=== PATIENT | female | born 1990 | race Caucasian/White ===

== ENCOUNTER 2022-05-23 08:00 | Emergency (ER) | payer BC ==
[2022-05-23] MEDS ORDERED: ONDANSETRON 4 MG/2 ML VIAL IVP STA (08:26)
[2022-05-23] MEDS ORDERED: SODIUM CHLORIDE 0.9% 1,000 ML IV STA (08:26)
--- NOTE | 2022-05-23 08:29 | ED Physician Documentation ---
PD HPI NVD - Stated complaint Stated Complaint: NAUSEA - Chief complaint Chief Complaint: Neuro - History obtained from History obtained from: Patient - History of Present Illness Timing - onset: How many days ago (few days of general fatigue, tiredness, postural headache, and nausea.) Timing - duration: Days (45 days of general fatigue and tiredness with sleeping a lot during the day and extra long at night. Nausea with decreased food intake but states she is still taking fluids. Feeling lightheaded at times. Considerably so this morning with near syncope and did fall over striking her shoulder.) Timing - details: Gradual onset, Still present Associated symptoms: Near syncope / syncope, Loss of appetite. No: Fever (but has feeling of chills), Abdominal pain, Chest pain, Dysuria, Vaginal bleeding Contributing factors: Sick contact (her boyfriend currently with COVID. Patient tested negative home tests.) Improved by: Laying still, Position Worsened by: Eating (worsened nausea with food. Taking fluids reasonably.), Position (feels worse standing up awhile. No vertigo, but lightheaded.) Similar symptoms before: Has not had sx before Recently seen: Not recently seen Review of Systems Constitutional: reports: Chills, Fatigue. denies: Fever, Weight Loss Nose: denies: Rhinorrhea / runny nose, Congestion Throat: denies: Sore throat Respiratory: denies: Cough GI: reports: Nausea. denies: Abdominal Pain, Vomiting, Diarrhea, Bloody / black stool : denies: Dysuria, Frequency, Missed period Skin: reports: Rash (baseline eczema left arm, not worse than usual.) Musculoskeletal: denies: Neck pain, Back pain Neurologic: reports: Near syncope (but to the point of losing muscle control and falling this morning in the shower. She does not think she completely passed out. Did see stars and dim vision prior to near-syncope.), Headache (intermittently the past several days.). denies: Syncope, Altered mental status PD PAST MEDICAL HISTORY - Past Medical History Cardiovascular: None Respiratory: None Endocrine/Autoimmune: None Derm: Eczema - Present Medications Home Medications: Ambulatory Orders Medication Instructions Recorded Confirmed Famotidine [Pepcid] 20 mg PO DAILY #15 tablet 05/23/22 Ondansetron Odt [Zofran] 4 mg TL Q6H PRN #10 tablet 05/23/22 Promethazine [Phenergan] 25 mg PO Q6H PRN #10 tab 05/23/22 - Allergies Allergies/Adverse Reactions: Allergies Allergy/AdvReac Type Severity Reaction Status Date / Time No Known Drug Allergies Allergy Verified 05/23/22 08:11 PD ED PE NORMAL - Vitals Vital signs reviewed: Yes - General General: Alert and oriented X 3, No acute distress, Well developed/nourished - HEENT HEENT: PERRL, EOMI - Neck Neck: Supple, no meningeal sign - Cardiac Cardiac: RRR, No murmur - Respiratory Respiratory: Clear bilaterally - Abdomen Abdomen: Normal bowel sounds, Soft, Non distended, Other (minimal tenderness left lower abd without guarding. ) - Derm Derm: Normal color, Other (faint scaly patches left arm c/w eczema. ) - Extremities Extremities: No edema, No calf tenderness / cord - Neuro Neuro: Alert and oriented X 3, No motor deficit, Normal speech Results - Vitals Vitals: Vital Signs - 24 hr 05/23/22 05/23/22 05/23/22 08:08 09:41 10:34 Temperature 36.4 C L Heart Rate 90 63 Heart Rate [ 69 Sitting] Heart Rate [ 72 Standing] Heart Rate [ 72 Supine] Respiratory 16 18 Rate Blood Pressure 126/90 H 115/74 Blood Pressure 121/79 [Sitting] Blood Pressure 130/79 [Standing] Blood Pressure 116/73 [Supine] O2 Saturation 100 100 Oxygen O2 Source Room air - EKG (time done) 08:38 Rate: Rate (enter#) (normal) Rhythm: NSR [place]: Normal Intervals: Normal [place] QRS: Normal Ischemia: Normal ST segments. No: ST elevation c/w ischemia, ST depression - Labs Labs: Laboratory Tests 05/23/22 05/23/22 05/23/22 08:31 08:31 08:31 WBC 9.5 RBC 4.25 Hgb 13.2 Hct 39.6 MCV 93.2 MCH 31.1 H MCHC 33.3 RDW 11.8 L Plt Count 220 MPV 10.0 Neut # (Auto) 8.0 H Lymph # (Auto) 0.9 L [place] # (Auto) 0.5 Eos # (Auto) 0.0 Baso # (Auto) 0.0 Absolute Nucleated RBC 0.00 Nucleated RBC % 0.0 Sodium 135 Potassium 3.6 Chloride 101 Carbon Dioxide 24 Anion Gap 10.0 BUN 19 Creatinine 0.9 Estimated GFR (MDRD) 73 L Glucose 111 H Calcium 9.6 Magnesium 2.2 Total Bilirubin 1.5 H AST 13 ALT < 10 L Alkaline Phosphatase 46 Total Protein 7.1 Albumin 4.2 Globulin 2.9 Albumin/Globulin Ratio 1.4 Lipase 38 TSH 1.14 Serum HCG, Qual Nasal Adenovirus (PCR) Nasal B. parapertussis DNA (PCR) Nasal Coronavir 229E PCR Nasal Coronavir HKU1 PCR Nasal Coronavir NL63 PCR Nasal Coronavir OC43 PCR Nasal Enterovir/Rhinovir PCR Nasal Influenza B PCR Nasal Influenza A PCR Nasal Parainfluen 1 PCR Nasal Parainfluen 2 PCR Nasal Parainfluen 3 PCR Nasal Parainfluen 4 PCR Nasal RSV (PCR) Nasal B.pertussis DNA PCR Nasal C.pneumoniae (PCR) Timothy Human Metapneumo PCR Nasal M.pneumoniae (PCR) Nasal SARS-CoV-2 (PCR) 05/23/22 05/23/22 08:31 08:32 WBC RBC Hgb Hct MCV MCH MCHC RDW Plt Count MPV Neut # (Auto) Lymph # (Auto) [place] # (Auto) Eos # (Auto) Baso # (Auto) Absolute Nucleated RBC Nucleated RBC % Sodium Potassium Chloride Carbon Dioxide Anion Gap BUN Creatinine Estimated GFR (MDRD) Glucose Calcium Magnesium Total Bilirubin AST ALT Alkaline Phosphatase Total Protein Albumin Globulin Albumin/Globulin Ratio Lipase TSH Serum HCG, Qual NEGATIVE Nasal Adenovirus (PCR) NOT DETECTED Nasal B. parapertussis DNA (PCR) NOT DETECTED Nasal Coronavir 229E PCR NOT DETECTED Nasal Coronavir HKU1 PCR NOT DETECTED Nasal Coronavir NL63 PCR NOT DETECTED Nasal Coronavir OC43 PCR NOT DETECTED Nasal Enterovir/Rhinovir PCR NOT DETECTED Nasal Influenza B PCR NOT DETECTED Nasal Influenza A PCR NOT DETECTED Nasal Parainfluen 1 PCR NOT DETECTED Nasal Parainfluen 2 PCR NOT DETECTED Nasal Parainfluen 3 PCR NOT DETECTED Nasal Parainfluen 4 PCR NOT DETECTED Nasal RSV (PCR) NOT DETECTED Nasal B.pertussis DNA PCR NOT DETECTED Nasal C.pneumoniae (PCR) NOT DETECTED Timothy Human Metapneumo PCR NOT DETECTED Nasal M.pneumoniae (PCR) NOT DETECTED Nasal SARS-CoV-2 (PCR) NOT DETECTED PD Medical Decision Making - ED course Complexity details: reviewed results, re-evaluated patient, considered differential (General weakness, tiredness, headache and nausea with near syncope this morning. Boyfriend has COVID but she tested negative at home. Consider viral illness with under hydration. Can check electrolytes and blood sugar and thyroid as well as and hemoglobin to look for other causes.), d/w patient Reviewed Lab Results: WBC appears normal. HCG ordered since patient of age to consider as cause of nausea and lightheaded. this was negative. UA normal iwthout signs of infection. Electrolytes and blood sugar without notable abnormality. ED course: patient feeling okay with iv fluids and medications. Presume viral illness with her symptoms. With some volume depletion as has had nausea and less food intake, even though still having fluids. Abd beningn on exam, so considered but did not feel necessity of imaging such as CT or US. Departure - Departure Disposition: 01 Home, Self Care Clinical Impression: Nausea, Near syncope, Volume depletion, Viral syndrome Condition: Stable Record reviewed to determine appropriate education?: Yes Instructions: ED Near Syncope Unkn, ED Nausea Vomiting Prescriptions: Famotidine [Pepcid] 20 mg PO DAILY #15 tablet Promethazine [Phenergan] 25 mg PO Q6H PRN #10 tab PRN Reason: Nausea / Vomiting Ondansetron Odt [Zofran] 4 mg TL Q6H PRN #10 tablet PRN Reason: Nausea / Vomiting Comments: Your basic blood count and chemistry panels are normal without any signs of anemia, diabetes, thyroid disorder, electrolyte abnormalities or kidney failure. test is negative. Your blood pressure did not really change much from's lying to standing. Generally your symptoms do sound like a viral type illness with the nausea, weakness, headache. At this point I would suggest trying some ondansetron if needed for nausea and/or promethazine. Stay well-hydrated as you have been doing. Increase food intake as tolerated. Tylenol or ibuprofen as needed for pains. Your stomach would be likely irritated from the illness and nausea and this may be perpetuating your symptoms. I would add famotidine twice daily for the next week or so. I sent your prescriptions to your [facility] pharmacy. Recheck if not improved well over the next few days. Discharge Date/Time: 05/23/22 11:29
[2022-05-23 08:37] LABS: BASOPHILS % (AUTO) 0.3 %; EOSINOPHILS % (AUTO) 0.3 %; HCT - HEMATOCRIT 39.6 % (37.0-47.0); HGB - HEMOGLOBIN 13.2 g/dL (12.0-16.0); LYMPHOCYTES # (AUTO) 0.9 10^3/uL (1.5-3.5); LYMPHOCYTES % (AUTO) 9.9 %; MEAN CORPUSCULAR HEMOGLOBIN 31.1 pg (27.0-31.0); MEAN CORPUSCULAR HGB CONC 33.3 g/dL (32.0-36.0); MEAN CORPUSCULAR VOLUME 93.2 fL (81.0-99.0); MONOCYTES # (AUTO) 0.5 10^3/uL (0.0-1.0); MONOCYTES % (AUTO) 5.5 %; NEUTROPHILS % (AUTO) 83.7 %; PLT - PLATELET COUNT 220 10^3/uL (130-450); RED BLOOD COUNT 4.25 10^6/uL (4.20-5.40); RED CELL DISTRIBUTION WIDTH 11.8 % (12.0-15.0); WHITE BLOOD COUNT 9.5 x10^3/uL (4.8-10.8)
[2022-05-23 08:55] LABS: ALBUMIN 4.2 g/dL (3.2-5.5); ALBUMIN/GLOBULIN RATIO 1.4 (1.0-2.2); ALKALINE PHOSPHATASE 46 IU/L (42-121); ALT ALANINE AMINOTRANSFERASE < 10 IU/L (10-60); AST ASPARTATE AMINOTRANSFERASE 13 IU/L (10-42); BILIRUBIN,TOTAL 1.5 mg/dL (0.2-1.0); BUN - BLOOD UREA NITROGEN 19 mg/dL (6-20); CALCIUM 9.6 mg/dL (8.5-10.3); CARBON DIOXIDE - CO2 24 mmol/L (21-32); CHLORIDE 101 mmol/L (101-111); CREATININE 0.9 mg/dL (0.4-1.0); GFR - MDRD 73 (>89); GLUCOSE 111 mg/dL (70-100); LIPASE 38 U/L (22-51); MAGNESIUM 2.2 mg/dL (1.7-2.8); POTASSIUM 3.6 mmol/L (3.5-5.0); SODIUM 135 mmol/L (135-145); TOTAL PROTEIN 7.1 g/dL (6.7-8.2)
[2022-05-23 09:06] LABS: HCG,QUALITATIVE BLOOD NEGATIVE
[2022-05-23] MEDS ORDERED: KETOROLAC 15 MG/ML VIAL IVP STA (09:12)
[2022-05-23 09:44] LABS: B. PARAPERTUSSIS- RESP PCR PAN NOT DETECTED; B. PERTUSSIS- RESP PCR PANEL NOT DETECTED; C. PNEUMONIAE- RESP PCR PANEL NOT DETECTED; CORONAVIRUS 229E-RESP PCR NOT DETECTED; CORONAVIRUS HKU1-RESP PCR NOT DETECTED; CORONAVIRUS NL63-RESP PCR NOT DETECTED; CORONAVIRUS OC43-RESP PCR NOT DETECTED; HUMAN METAPNEUMOVIRUS NOT DETECTED; INFLUENZA A- RESP PCR PANEL NOT DETECTED; INFLUENZA B - RESP PCR PANEL NOT DETECTED; M. PNEUMONIAE- RESP PCR PANEL NOT DETECTED; PARAINFLUENZA VIRUS 1 NOT DETECTED; PARAINFLUENZA VIRUS 2 NOT DETECTED; PARAINFLUENZA VIRUS 3 NOT DETECTED; PARAINFLUENZA VIRUS 4 NOT DETECTED; RHINOVIRUS/ENTEROVIRUS NOT DETECTED; RSV- RESP PCR PANEL NOT DETECTED; SARS-CoV-2 -RESP PCR PANEL NOT DETECTED
[2022-05-23 10:36] VITALS: BP 115/74
== END 2022-05-23 11:29 | disposition home or self-care (01) ==
LOC: ED 08:00
DX: E86.9 Volume depletion, unspecified (principal); B34.9 Viral infection, unspecified; Z20.822 Contact with and (suspected) exposure to COVID-19
CPT/HCPCS: 36415; 80053; 83690; 83735; 84443; 84703; 85025; 87633; 93005; 96374; 96375; 99284

== ENCOUNTER 2022-11-23 11:46 | Emergency (ER) | payer BC ==
--- NOTE | 2022-11-23 14:00 | ED Physician Documentation ---
PD HPI HEADACHE - Stated complaint Stated Complaint: FEVER,LOMELI - Chief complaint Chief Complaint: Neuro - History obtained from History obtained from: Patient - Additional information Additional information: The patient comes to the emergency department chief complaint of ongoing headaches over the last several months, as well as occasional fainting episodes. She states that she has been diagnosed with migraines by her primary doctor and started on Topamax and another medication for migraine which she is not sure of the name of. She states that she has also been diagnosed with orthostatic hypotension as a chronic condition. The patient states she drinks around 60 ounces of water every day and feels that she is generally well-hydrated. She has been in the process of trying to get an MRI through her primary doctor, but so far, they have been having some trouble getting the insurance company to approve it. The patient has an appointment coming up with her primary doctor in a couple of weeks. She is here because 6 days ago, she had another fainting episode after getting up in the bathroom. She does not really know how long she was out because she was the only one home, but states that she thinks that she bumped her head against the wall as she fell. The patient states her bathroom is very small and it did not feel as though she hit her head very hard, but that since then, she has had a couple of other episodes of feeling lightheaded which have not resulted in an actual syncopal episode. The patient states that each time, she has felt lightheaded and is quickly squatted down and managed to avoid a syncopal episode. She denies any palpitations, shortness of breath or chest pain. She states she does not feel sick in any other way. She has had persistent headache for the last several days which is consistent with her prior migraines. The patient denies any worsening of the headache progressively over the last week. She has been measuring temperatures of 98-99 at home. No neck pain currently. The patient denies any neurologic deficits. She states that sometimes when her migraines come on, she will see spots in her vision, and that this lasts for sometimes several seconds to several minutes, but always resolves on its own. No other complaints at this time. The patient is hoping to get an MRI since she has been having trouble getting one as an outpatient. PD PAST MEDICAL HISTORY - Past Medical History Cardiovascular: None Respiratory: None Endocrine/Autoimmune: None Derm: Eczema - Present Medications Home Medications: Ambulatory Orders Medication Instructions Recorded Confirmed DULoxetine [Cymbalta] 30 mg PO DAILY 11/23/22 11/23/22 Sumatriptan Succinate [Imitrex] 50 mg PO PRN PRN 11/23/22 11/23/22 Topiramate [Topamax] 25 mg PO DAILY 11/23/22 11/23/22 - Allergies Allergies/Adverse Reactions: Allergies Allergy/AdvReac Type Severity Reaction Status Date / Time No Known Drug Allergies Allergy Verified 05/23/22 08:11 PD ED PE NORMAL - Vitals Vital signs reviewed: Yes - General General: Alert and oriented X 3, No acute distress, Well developed/nourished - HEENT HEENT: Atraumatic, PERRL, EOMI, Moist mucous membranes - Neck Neck: Supple, no meningeal sign, No bony TTP - Cardiac Cardiac: RRR, No murmur, Strong equal pulses - Respiratory Respiratory: No respiratory distress, Clear bilaterally - Abdomen Abdomen: Soft, Non tender, Non distended - Back Back: No spinal TTP - Derm Derm: Normal color, Warm and dry, No rash - Extremities Extremities: No deformity, No edema - Neuro Neuro: Alert and oriented X 3 - Psych Psych: Normal mood, Normal affect Results - Vitals Vitals: Vital Signs - 24 hr 11/23/22 11/23/22 11/23/22 11:55 11:58 12:38 Temperature 36.7 C 36.7 C Heart Rate 80 80 96 Respiratory 20 20 18 Rate Blood Pressure 114/82 H 114/82 H 176/101 H O2 Saturation 99 99 100 11/23/22 13:58 Temperature 36.6 C Heart Rate 88 Respiratory 16 Rate Blood Pressure 138/88 H O2 Saturation 100 Oxygen O2 Source Room air PD Medical Decision Making - ED course Complexity details: reviewed results, re-evaluated patient, considered differential, d/w patient ED course: I discussed with the patient that at this point in time, I do not feel that emergent imaging is indicated. Our CT scanner is actually down today, but even aside from that, the patient has a head injury that is very mild from nearly a week ago and has not had any worsening symptoms, either in terms of headache or of neurologic deficit, since. She has a history of chronic migraines and her current symptoms are the same. She also has an established and longstanding history of orthostatic hypotension and repeated syncopal and near syncopal episodes. She is well-established with primary care and has been getting care for both of these conditions. The patient's vital signs are stable here and she has neither acute neurologic symptoms nor any evidence of hypotension, positional or otherwise, at this time. I discussed with her that at this point, we would not do MRI emergently, even if it was during the week and we have MRI available. The patient will need to continue to work with her primary doctor on this. I have offered the patient labs and an EKG, but the patient states that she has had both done previously, both on her visit here in May and by her primary care physician later, and does not feel that she wants to repeat this work-up at this time. I feel that this is reasonable, given that these are longstanding conditions which have been recurrent. I have also discussed with her that perhaps event monitoring and referral to either cardiology or neurology would be helpful. We have discussed the usual indications for return. Departure - Departure Disposition: 01 Home, Self Care Clinical Impression: Syncope and collapse Headache Qualifiers: Headache type: unspecified Headache chronicity pattern: episodic headache Intractability: not intractable Qualified Code(s): R51.9 - Headache, unspecified Condition: Stable Instructions: ED Headache Migraine, ED Syncope Vasovagal Comments: You do not have any concerning neurologic findings on exam. At this point in time, any traumatic bleeding in your brain from your fainting episode last week would be very evident in terms of neurologic symptoms. It is not clear why you continue to have the fainting episodes, and your doctor will need to do more investigation. We have offered repeat labs and EKG today, though you would prefer to wait on these things for now. MRI may be helpful for further evaluation, but this is not indicated urgently or emergently today. Unfortunately, our CT scanner is being repaired and we cannot offer CT scanning today. If you begin to develop an increasingly severe headache, neurologic deficits, or persistent vomiting, you should be reevaluated as soon as possible. If you need to return for any of these things in the next couple of days, please call her ED first to determine whether her CT scanner is back up and running. Otherwise, please continue to drink plenty of fluids and take your home medications as directed. Please plan to keep your follow-up appointment with your primary doctor, at which time we may discuss revisiting the idea of MRI and also, the possibility of event monitoring to determine whether you are having any cardiac rhythms that are contributing to your fainting/lightheaded episodes. Forms: PCP List Discharge Date/Time: 11/23/22 14:03
[2022-11-23 14:07] VITALS: BP 138/88
== END 2022-11-23 14:03 | disposition home or self-care (01) ==
LOC: ED 11:46
DX: R51.9 Headache, unspecified (principal); R55 Syncope and collapse
CPT/HCPCS: 99281; 99282